=== PATIENT | female | born 1985 | race Caucasian/White ===

== ENCOUNTER 2016-11-22 13:52 | Emergency (ER) | payer OTHER | END 2016-11-22 16:20 | disposition home or self-care (01) | LOC: ER1 13:52 | DX: G43.909 Migraine, unspecified, not intractable, without status migrainosus (principal); F17.210 Nicotine dependence, cigarettes, uncomplicated | CPT/HCPCS: 96374; 96375; 99283; J1200; J1885; J2765 ==